=== PATIENT | female | born 1990 | race Caucasian/White ===

== ENCOUNTER 2017-05-31 19:00 | Inpatient (IN) | payer OTHER ==
[2017-05-31] MEDS ORDERED: XYLOCAINE 2% INFILTRATI ONE ×2 (19:51→21:04)
[2017-05-31] MEDS ORDERED: MINERAL OIL PO PRN ×2 (19:51→21:04)
[2017-05-31] MEDS ORDERED: ePHEDrine SULFATE IV PRN ×2 (19:51→21:04)
[2017-05-31] MEDS ORDERED: BRETHINE IVP PRN ×2 (19:51→21:04)
[2017-05-31] MEDS ORDERED: BRETHINE SUB-Q PRN ×2 (19:51→21:04)
[2017-05-31] MEDS ORDERED: PITOCin/NS 30 UNIT/500ML 30 UNITS/500 ML BAG IV SCH ×2 (20:00→22:00)
[2017-05-31] MEDS: LACTATED RINGERS 1,000 ML IV SCH ×3 (20:00→22:57)
[2017-05-31] MEDS ORDERED: PITOCin/NS 20 UNIT/1000ML DRIP 20 UNITS/1,000 ML BAG IV SCH ×2 (20:00→22:00)
[2017-05-31 20:24] LABS: Hematocrit 37.6 % (30.3-42.9); Hemoglobin 12.6 gm/dl (10.1-14.3); Mean Corpuscular HGB Conc 34 % (30-34); Mean Corpuscular Hemoglobin 29 pg (28-32); Mean Corpuscular Volume 85 fl (79-97); Platelet Count 246 K/mm3 (140-440); Red Cell Distribution Width 17.2 % (13.2-15.2); White Blood Count 12.3 K/mm3 (4.5-11.0)
[2017-05-31 20:48] LABS: HIV-1 Antigen p24 Non React (Non React); HIVR-1/2 Ab Non React (Non React)
--- NOTE | 2017-05-31 21:00 | History and Physical Report ---
History of Present Illness Date of examination: 05/31/17 Date of admission: 05/31/17 20:26 Chief complaint: Painful contractions History of present illness: 26-year-old at 38+4 weeks presents in active labor, she had care in [facility] and no care in the [place]. She dropped into the [facility] clinic for 1 visit and was not seen since. She had no labs or ultrasounds obtained ; it appears patient declined care. She claims her care has been unremarkable. Past History Past Medical History: no pertinent history Past Surgical History: no surgical history, other (rhinoplasty) [employer] History: denies: chlamydia, gonorrhea, hepatitis B, hepatitis C, herpes, HIV , syphilis Social history: full code. denies: smoking, alcohol abuse, prescription drug abuse, IV drug use - Obstetrical History Expected Date of Delivery: 06/10/17 Actual Gestation: 38 Week(s) 4 Day(s) : 1 Para: 0 Medications and Allergies Allergies Allergy/AdvReac Type Severity Reaction Status Date / Time No Known Allergies Allergy Unverified 05/31/17 19:45 Active Meds: Active Medications Ephedrine Sulfate (Ephedrine Sulfate) 10 mg IV Q2M PRN PRN Reason: Hypotension Lactated Ringer's (Lactated Ringers) 1,000 mls @ 125 mls/hr IV DIRECT ADONIS Last Admin: 05/31/17 20:00 Dose: 125 mls/hr Oxytocin/Sodium Chloride (Pitocin/Ns 20 Unit/1000ml Drip) 20 units in 1,000 mls @ 125 mls/hr IV DIRECT ADONIS Oxytocin/Sodium Chloride (Pitocin/Ns 30 Unit/500ml) 30 units in 500 mls @ 1 mls /hr IV TITR ADONIS; 1 MILLIUNITS/MIN PRN Reason: Protocol Mineral Oil (Mineral Oil) 30 ml PO QHS PRN PRN Reason: Constipation Terbutaline Sulfate (Brethine) 0.25 mg SUB-Q ONCE PRN PRN Reason: Hyperstimulation/Hypertonicity Terbutaline Sulfate (Brethine) 0.25 mg IVP ONCE PRN PRN Reason: Hyperstimulation/Hypertonicity Review of Systems Constitutional: no fever, no chills, no fatigue Cardiovascular: no chest pain, no syncope, no lightheadedness, no shortness of breath, no dyspnea on exertion, no high blood pressure Respiratory: no cough, no cough with sputum, no shortness of breath, no dyspnea on exertion Gastrointestinal: no abdominal pain, no nausea, no vomiting Genitourinary: contractions, no vaginal bleeding, no vaginal discharge, no leakage of fluid - Vital Signs Vital signs: Vital Signs Temp Resp 99.0 F 18 05/31/17 19:53 05/31/17 19:53 Temp Pulse Resp BP Pulse Ox 99.0 F 18 05/31/17 19:53 05/31/17 19:53 - Physical Exam Cardiovascular: Regular rate, Normal S1, Normal S2 Lungs: Positive: Clear to auscultation, Normal air movement Abdomen: Positive: normal appearance, soft, normal bowel sounds. Negative: distention, tenderness, guarding Genitourinary (Female): Positive: normal external genitalia Vulva: both: normal Uterus: Positive: enlarged (EFW ~ 3200) Adnexa: both: normal Extremities: Positive: normal - Obstetrical FHR: category 1 Cervical Dilatation: 8 Results Result Diagrams: 05/31/17 20:05 Abnormal lab results 05/31/17 Range/Units 20:05 WBC 12.3 H (4.5-11.0) K/mm3 RDW 17.2 H (13.2-15.2) % All other labs normal. Assessment and Plan A: 26-year-old at 38+4 weeks in active labor -Cat 1 tracing -No PNC in [place] P: -Admit -Routine labs -Epidural when necessary -Expectant management - Patient Problems (1) 38 weeks gestation of Current Visit: Yes Status: Acute (2) Active labor at term Current Visit: Yes Status: Acute (3) No care in current Current Visit: Yes Status: Acute
[2017-05-31 21:04] LABS: Urine Drugs of Abuse Note Disclamer
[2017-05-31] MEDS ORDERED: ZOFRAN IV PRN (21:04)
[2017-05-31] MEDS ORDERED: SUBLIMAZE IV PRN (21:04)
[2017-05-31] MEDS ORDERED: POLYCILLIN/NS 2 GM/100 ML 2 GM/100 ML BAG IV ONE (21:07)
[2017-05-31 21:12] LABS: Bacteria,Urine 1+ /HPF (Negative); Bilirubin,Urine NEG (Negative); Blood,Urine MOD (Negative); Ketones,Urine NEG (Negative); Leukocyte Esterase,Urine LG (Negative); Nitrite,Urine NEG (Negative); Protein,Urine <15 mg/dL mg/dL (Negative); Urobilinogen,Urine < 2.0 mg/dL (<2.0)
[2017-05-31] MEDS ORDERED: LACTATED RINGERS 1,000 ML IV SCH (22:00)
[2017-05-31] MEDS ORDERED: NARCAN 2 MG/2 ML IV PRN (22:06)
--- NOTE | 2017-05-31 22:06 | Anesthesia Consultation ---
Anesthesia Consult and Med Hx Date of service: 05/31/17 - Airway Anesthetic Teeth Evaluation: Good ROM Head & Neck: Adequate Mental/Hyoid Distance: Adequate Mallampati Class: Class II Intubation Access Assessment: Probably Good - Pulmonary Exam CTA: Yes - Cardiac Exam Cardiac Exam: RRR - Pre-Operative Health Status ASA Pre-Surgery Classification: ASA2 Proposed Anesthetic Plan: Epidural, Spinal - Pulmonary Hx Asthma: No COPD: No Hx Pneumonia: No - Cardiovascular System Hx Hypertension: No - Central Nervous System Hx Seizures: No Hx Psychiatric Problems: No - Endocrine Hx Renal Disease: No Hx End Stage Renal Disease: No Hx Hypothyroidism: No Hx Hyperthyroidism: No - Hematic Hx Anemia: No Hx Sickle Cell Disease: No - Other Systems Hx Alcohol Use: No Hx Obesity: Yes - Additional Comments Anesthesia Medical History Comments: IUP
[2017-05-31] MEDS ORDERED: fentaNYL-BUPIV 2 MCG/ML-0.125% 200 MCG/100 ML BAG EPIDURAL SCH (23:00)
[2017-05-31] MEDS: PITOCin/NS 30 UNIT/500ML 30 UNITS/500 ML BAG IV SCH (23:11)
[2017-06-01] MEDS: PITOCin/NS 30 UNIT/500ML 30 UNITS/500 ML BAG IV SCH (00:12)
[2017-06-01] MEDS ORDERED: POLYCILLIN/NS 1 GM/50 ML 1 GM/50 ML BAG IV SCH (01:00)
--- NOTE | 2017-06-01 02:28 | Progress Note ---
Assessment and Plan A: 26-year-old at 38+4 weeks in active labor -Cat 1 tracing -No PNC in [place] P: -Continue present care -Anticipate normal vaginal delivery - Patient Problems (1) 38 weeks gestation of Current Visit: Yes Status: Acute (2) Active labor at term Current Visit: Yes Status: Acute (3) No care in current Current Visit: Yes Status: Acute Subjective - Subjective Date of service: 06/01/17 Interval history: Patient is 9.5/100/-1 station. AROMed w/ clear fluid Patient reports: new complaints, contractions, no loss of fluid, no vaginal bleeding Objective - Vital Signs Vital Signs: Vital Signs - 12hr 05/31/17 05/31/17 05/31/17 19:53 21:13 21:16 Temperature 99.0 F 99.1 F Pulse Rate 96 H Respiratory 18 22 Rate Blood Pressure 141/74 O2 Sat by Pulse 95 Oximetry 05/31/17 05/31/17 05/31/17 21:21 21:26 21:31 Temperature Pulse Rate 98 H 103 H 102 H Respiratory Rate Blood Pressure O2 Sat by Pulse 96 96 96 Oximetry 05/31/17 05/31/17 05/31/17 21:36 21:37 21:41 Temperature Pulse Rate 96 H 91 H 99 H Respiratory Rate Blood Pressure O2 Sat by Pulse 95 94 96 Oximetry 05/31/17 05/31/17 05/31/17 21:43 21:53 21:56 Temperature Pulse Rate 114 H 106 H 99 H Respiratory Rate Blood Pressure 124/60 O2 Sat by Pulse 94 100 Oximetry 05/31/17 05/31/17 05/31/17 21:57 21:58 21:59 Temperature Pulse Rate 93 H 99 H 97 H Respiratory Rate Blood Pressure 121/66 122/64 O2 Sat by Pulse 98 Oximetry 05/31/17 05/31/17 05/31/17 22:01 22:03 22:04 Temperature Pulse Rate 101 H 114 H 101 H Respiratory Rate Blood Pressure 129/69 137/69 O2 Sat by Pulse 96 Oximetry 05/31/17 05/31/17 05/31/17 22:05 22:07 22:09 Temperature Pulse Rate 97 H 113 H 117 H Respiratory Rate Blood Pressure 141/75 152/89 O2 Sat by Pulse 98 Oximetry 05/31/17 05/31/17 05/31/17 22:10 22:11 22:13 Temperature Pulse Rate 116 H 103 H 114 H Respiratory Rate Blood Pressure 135/59 127/59 119/59 O2 Sat by Pulse Oximetry 05/31/17 05/31/17 05/31/17 22:14 22:16 22:19 Temperature Pulse Rate 105 H 107 H 108 H Respiratory Rate Blood Pressure 149/69 O2 Sat by Pulse 98 98 Oximetry 05/31/17 05/31/17 05/31/17 22:20 22:22 22:23 Temperature Pulse Rate 107 H 100 H 104 H Respiratory Rate Blood Pressure 155/122 139/122 130/109 O2 Sat by Pulse Oximetry 05/31/17 05/31/17 05/31/17 22:24 22:25 22:27 Temperature Pulse Rate 112 H 111 H Respiratory Rate Blood Pressure 139/111 O2 Sat by Pulse 99 91 Oximetry 05/31/17 05/31/17 05/31/17 22:28 22:29 22:31 Temperature Pulse Rate 114 H 115 H 103 H Respiratory Rate Blood Pressure 110/54 98/56 112/55 O2 Sat by Pulse 99 Oximetry 05/31/17 05/31/17 05/31/17 22:33 22:34 22:35 Temperature Pulse Rate 111 H 103 H 89 Respiratory Rate Blood Pressure 107/57 108/53 O2 Sat by Pulse 99 Oximetry 05/31/17 05/31/17 05/31/17 22:37 22:39 22:41 Temperature Pulse Rate 86 94 H 100 H Respiratory Rate Blood Pressure 108/54 104/60 111/58 O2 Sat by Pulse 99 Oximetry 05/31/17 05/31/17 05/31/17 22:43 22:44 22:45 Temperature Pulse Rate 107 H 94 H 97 H Respiratory Rate Blood Pressure 113/59 105/55 O2 Sat by Pulse 99 Oximetry 05/31/17 05/31/17 05/31/17 22:47 22:49 22:51 Temperature Pulse Rate 102 H 107 H 100 H Respiratory Rate Blood Pressure 109/58 109/58 96/56 O2 Sat by Pulse 96 Oximetry 05/31/17 05/31/17 05/31/17 22:52 22:53 22:54 Temperature Pulse Rate 106 H 107 H Respiratory Rate Blood Pressure 97/55 O2 Sat by Pulse 89 98 Oximetry 05/31/17 05/31/17 05/31/17 22:55 22:57 22:59 Temperature Pulse Rate 94 H 102 H 101 H Respiratory Rate Blood Pressure 105/57 107/56 101/58 O2 Sat by Pulse 97 Oximetry 05/31/17 05/31/17 05/31/17 23:01 23:03 23:04 Temperature Pulse Rate 97 H 106 H 98 H Respiratory Rate Blood Pressure 105/55 103/54 O2 Sat by Pulse 97 Oximetry 05/31/17 05/31/17 05/31/17 23:05 23:07 23:09 Temperature Pulse Rate 102 H 102 H 109 H Respiratory Rate Blood Pressure 104/53 98/53 104/55 O2 Sat by Pulse 98 Oximetry 05/31/17 05/31/17 05/31/17 23:11 23:13 23:14 Temperature Pulse Rate 109 H 107 H 101 H Respiratory Rate Blood Pressure 101/51 101/51 O2 Sat by Pulse 97 Oximetry 05/31/17 05/31/17 05/31/17 23:15 23:17 23:19 Temperature Pulse Rate 106 H 105 H 109 H Respiratory Rate Blood Pressure 93/52 96/53 95/46 O2 Sat by Pulse 98 Oximetry 05/31/17 05/31/17 05/31/17 23:24 23:26 23:28 Temperature Pulse Rate 116 H 102 H 111 H Respiratory Rate Blood Pressure 81/6 112/56 O2 Sat by Pulse 98 Oximetry 05/31/17 05/31/17 05/31/17 23:29 23:34 23:39 Temperature Pulse Rate 99 H 121 H 100 H Respiratory Rate Blood Pressure 89/50 O2 Sat by Pulse 98 98 98 Oximetry 05/31/17 05/31/17 05/31/17 23:41 23:44 23:45 Temperature Pulse Rate 121 H 108 H 110 H Respiratory Rate Blood Pressure 127/61 109/50 O2 Sat by Pulse 98 Oximetry 05/31/17 05/31/17 05/31/17 23:49 23:54 23:55 Temperature Pulse Rate 115 H 97 H 94 H Respiratory Rate Blood Pressure 103/53 108/56 O2 Sat by Pulse 97 98 Oximetry 05/31/17 06/01/17 06/01/17 23:59 00:04 00:09 Temperature Pulse Rate 117 H 130 H 107 H Respiratory Rate Blood Pressure O2 Sat by Pulse 98 98 97 Oximetry 1206/01/17 06/01/17 00:10 00:14 00:19 Temperature Pulse Rate 106 H 108 H 120 H Respiratory Rate Blood Pressure 107/58 O2 Sat by Pulse 98 98 Oximetry 06/01/17 06/01/17 06/01/17 00:20 00:24 00:25 Temperature 99.2 F Pulse Rate 122 H 126 H Respiratory Rate Blood Pressure 113/60 O2 Sat by Pulse 97 Oximetry 06/01/17 06/01/17 06/01/17 00:29 00:34 00:39 Temperature Pulse Rate 113 H 111 H 116 H Respiratory Rate Blood Pressure O2 Sat by Pulse 97 97 97 Oximetry 06/01/17 06/01/17 06/01/17 00:41 00:44 00:49 Temperature Pulse Rate 97 H 88 86 Respiratory Rate Blood Pressure 119/60 O2 Sat by Pulse 94 93 94 Oximetry 06/01/17 06/01/17 06/01/17 00:54 00:55 00:58 Temperature Pulse Rate 107 H 94 H 102 H Respiratory Rate Blood Pressure 122/65 O2 Sat by Pulse 94 94 Oximetry 06/01/17 06/01/17 06/01/17 00:59 01:04 01:05 Temperature Pulse Rate 116 H 108 H 109 H Respiratory Rate Blood Pressure O2 Sat by Pulse 95 95 94 Oximetry 06/01/17 06/01/17 06/01/17 01:09 01:10 01:11 Temperature Pulse Rate 109 H 110 H 105 H Respiratory Rate Blood Pressure 120/65 O2 Sat by Pulse 94 94 Oximetry 06/01/17 06/01/17 06/01/17 01:14 01:18 01:19 Temperature Pulse Rate 103 H 90 94 H Respiratory Rate Blood Pressure O2 Sat by Pulse 95 94 95 Oximetry 06/01/17 06/01/17 06/01/17 01:24 01:26 01:29 Temperature Pulse Rate 101 H 110 H 101 H Respiratory Rate Blood Pressure 128/83 O2 Sat by Pulse 95 96 Oximetry 06/01/17 06/01/17 06/01/17 01:30 01:34 01:39 Temperature Pulse Rate 105 H 105 H 97 H Respiratory Rate Blood Pressure O2 Sat by Pulse 94 96 94 Oximetry 06/01/17 06/01/17 06/01/17 01:41 01:44 01:49 Temperature Pulse Rate 90 80 90 Respiratory Rate Blood Pressure 119/63 O2 Sat by Pulse 93 93 Oximetry 06/01/17 06/01/17 06/01/17 01:54 01:56 01:59 Temperature Pulse Rate 84 109 H 121 H Respiratory Rate Blood Pressure 121/73 O2 Sat by Pulse 93 94 97 Oximetry 06/01/17 06/01/17 06/01/17 02:04 02:09 02:11 Temperature Pulse Rate 118 H 96 H 95 H Respiratory Rate Blood Pressure 127/70 O2 Sat by Pulse 96 95 Oximetry 06/01/17 06/01/17 06/01/17 02:14 02:18 02:19 Temperature Pulse Rate 84 85 114 H Respiratory Rate Blood Pressure O2 Sat by Pulse 95 94 97 Oximetry 06/01/17 06/01/17 02:24 02:25 Temperature Pulse Rate 116 H 109 H Respiratory Rate Blood Pressure 131/79 O2 Sat by Pulse 96 Oximetry - Exam FHR: category 1 Cervical Dilatation: 9.5 station: -1 - Labs Labs: Abnormal Labs 05/31/17 20:05 WBC 12.3 H RDW 17.2 H Laboratory Results - last 24 hr 05/31/17 05/31/17 05/31/17 20:05 20:05 20:05 WBC 12.3 H RBC 4.40 Hgb 12.6 Hct 37.6 MCV 85 MCH 29 MCHC 34 RDW 17.2 H Plt Count 246 Sickle Cell Screen Negative Urine Color Urine Turbidity Urine pH Ur Specific [place] Urine Protein Urine Glucose (UA) Urine Ketones Urine Blood Urine Nitrite Urine Bilirubin Urine Urobilinogen Ur Leukocyte Esterase Urine WBC (Auto) Urine RBC (Auto) U Epithel Cells (Auto) Urine Bacteria (Auto) Urine Opiates Screen Urine Methadone Screen Ur Barbiturates Screen Ur Phencyclidine Scrn Ur Amphetamines Screen U Benzodiazepines Scrn Urine Cocaine Screen U Marijuana (THC) Screen Drugs of Abuse Note Hep Bs Antigen Hepatitis C Antibody HIV 1&2 Antibody Rapid HIV P24 Antigen Rubella IgG Antibody Blood Type B POSITIVE Antibody Screen Negative 05/31/17 05/31/17 05/31/17 20:05 20:05 20:05 WBC RBC Hgb Hct MCV MCH MCHC RDW Plt Count Sickle Cell Screen Urine Color Urine Turbidity Urine pH Ur Specific [place] Urine Protein Urine Glucose (UA) Urine Ketones Urine Blood Urine Nitrite Urine Bilirubin Urine Urobilinogen Ur Leukocyte Esterase Urine WBC (Auto) Urine RBC (Auto) U Epithel Cells (Auto) Urine Bacteria (Auto) Urine Opiates Screen Urine Methadone Screen Ur Barbiturates Screen Ur Phencyclidine Scrn Ur Amphetamines Screen U Benzodiazepines Scrn Urine Cocaine Screen U Marijuana (THC) Screen Drugs of Abuse Note Hep Bs Antigen Non-reactive Hepatitis C Antibody Non-reactive HIV 1&2 Antibody Rapid Non react HIV P24 Antigen Non react Rubella IgG Antibody Immune Blood Type Antibody Screen 05/31/17 05/31/17 20:55 20:55 WBC RBC Hgb Hct MCV MCH MCHC RDW Plt Count Sickle Cell Screen Urine Color Yellow Urine Turbidity Clear Urine pH 7.0 Ur Specific [place] 1.005 Urine Protein <15 mg/dl Urine Glucose (UA) Neg Urine Ketones Neg Urine Blood Mod Urine Nitrite Neg Urine Bilirubin Neg Urine Urobilinogen < 2.0 Ur Leukocyte Esterase Lg Urine WBC (Auto) 6.0 Urine RBC (Auto) 5.0 U Epithel Cells (Auto) 1.0 Urine Bacteria (Auto) 1+ Urine Opiates Screen Presumptive negative Urine Methadone Screen Presumptive negative Ur Barbiturates Screen Presumptive negative Ur Phencyclidine Scrn Presumptive negative Ur Amphetamines Screen Presumptive negative U Benzodiazepines Scrn Presumptive negative Urine Cocaine Screen Presumptive negative U Marijuana (THC) Screen Presumptive negative Drugs of Abuse Note Disclamer Hep Bs Antigen Hepatitis C Antibody HIV 1&2 Antibody Rapid HIV P24 Antigen Rubella IgG Antibody Blood Type Antibody Screen
[2017-06-01] MEDS ORDERED: XYLOCAINE 2% INFILTRATI ONE (03:32)
[2017-06-01] MEDS ORDERED: METHERGINE IM ONE ×2 (03:38→04:58)
--- NOTE | 2017-06-01 03:54 | Procedure Note ---
OB Delivery Note - Delivery Date of Delivery: 06/01/17 Surgeon: PAVEL TRAORE Estimated blood loss: 300cc - Vaginal Delivery presentation: vertex Delivery position: OA Intrapartum events: no care (no care in the ) Delivery induction: none Delivery monitor: external FHT, external uterine Route of delivery: Delivery placenta: spontaneous Delivery cord: 3 umbilical vessels Episiotomy: none Delivery laceration: 2nd degree, vaginal side wall Delivery repair: vicryl Anesthesia: local, epidural - Infant A at 1 minute: 9 at 5 minutes: 9 Infant Gender: Female (time of delivery is 3:31 AM, infant weight 7 lbs. 5 oz. or 3331 g)
[2017-06-01] MEDS ORDERED: TYLENOL PO PRN (03:57)
[2017-06-01] MEDS ORDERED: ZOFRAN IV PRN (03:57)
[2017-06-01] MEDS ORDERED: NORCO 5/325 PO PRN (03:57)
[2017-06-01] MEDS ORDERED: METHERGINE IM PRN (03:57)
[2017-06-01] MEDS ORDERED: MILK OF MAGNESIA PO PRN (03:57)
[2017-06-01] MEDS ORDERED: PHENERGAN PR PRN (03:57)
[2017-06-01] MEDS ORDERED: PHENERGAN PO PRN (03:57)
[2017-06-01] MEDS ORDERED: TUCKS PAD TP PRN (03:57)
[2017-06-01] MEDS ORDERED: LANSINOH TP PRN ×2 (03:57)
[2017-06-01] MEDS ORDERED: DULCOLAX PR PRN (03:57)
[2017-06-01] MEDS ORDERED: BENADRYL PO PRN (03:57)
[2017-06-01] MEDS ORDERED: SODIUM CHLORIDE FLUSH SYRINGE 10 ML IV NR (04:00)
[2017-06-01] MEDS ORDERED: SENOKOT S PO SCH (06:00)
[2017-06-01] MEDS: MOTRIN PO SCH (07:22)
[2017-06-01] MEDS ORDERED: FEOSOL PO SCH (10:00)
[2017-06-01] MEDS ORDERED: COLACE PO SCH (10:00)
[2017-06-01] MEDS ORDERED: PRENATAL VITAMIN PO SCH (10:00)
[2017-06-01 16:07] LABS: Hematocrit 32.2 % (30.3-42.9); Hemoglobin 10.6 gm/dl (10.1-14.3)
[2017-06-02] MEDS: MOTRIN PO SCH ×2 (00:17→05:23)
[2017-06-02] MEDS ORDERED: BOOSTRIX IM ONE (06:05)
[2017-06-02] MEDS ORDERED: M-M-R II VACCINE SUB-Q ONE (06:05)
--- NOTE | 2017-06-02 08:02 | Progress Note ---
Assessment and Plan PPD#1 s/p -Doing well P: -Continue routine care -Anticipate discharge in 24-48 hours - Patient Problems (1) (normal spontaneous vaginal delivery) Current Visit: Yes Status: Acute (2) 38 weeks gestation of Current Visit: Yes Status: Acute (3) Active labor at term Current Visit: Yes Status: Acute (4) No care in current Current Visit: Yes Status: Acute Subjective - Subjective Date of service: 06/02/17 Principal diagnosis: PPD#1 Interval history: Patient seen and examined, stable doing well. No shortness of breath or chest pain no fever or chills. Adequate bowel bladder function ambulating without difficulty Patient reports: appetite normal, voiding normally, pain well controlled, flatus , ambulating normally, no dizzy ambulation, no nauseated : doing well Objective - Vital Signs Latest vital signs: Vital Signs Temp Pulse Resp BP 06/01/17 23:20 98.5 F 75 20 111/55 06/01/17 09:17 98.4 F 60 18 102/48 Intake and Output 06/01/17 06/02/17 06/02/17 23:59 07:59 15:59 Intake Total 480 540 Output Total 800 Balance -320 540 Intake: Oral 480 Intake, Free Water 540 Output: Urine 800 Void 800 Other: Total, Intake Amount 480 Total, Output Amount 800 # Voids Void 2 1 - Exam Abdomen: Present: normal appearance, soft. Absent: distention, tenderness, guarding, rigidity Uterus: Present: firm, fundal height below umbilicus Extremities: Present: normal
--- NOTE | 2017-06-02 08:04 | Discharge Summary ---
Providers - Providers Date of Admission: 05/31/17 20:26 Date of discharge: 06/03/17 Attending physician: PAVEL TRAORE Primary care physician: PAVEL TRAORE Hospitalization Reason for admission: active labor, IUP at term Delivery: Episiotomy: none Laceration: 2nd degree Incision: dry, intact Other procedures: none complications: none Discharge diagnosis: IUP at term delivered baby: female Hospital course: Uncomplicated course Condition at discharge: Good Disposition: DC-01 TO HOME OR SELFCARE - Discharge Diagnoses (1) (normal spontaneous vaginal delivery) Status: Acute (2) 38 weeks gestation of Status: Acute (3) Active labor at term Status: Acute (4) No care in current Status: Acute Plan - Discharge Medications Prescriptions: HYDROcodone/APAP 5-325 [[place] 5/325] 1 each PO Q6HR PRN #10 tablet PRN Reason: Pain Ibuprofen [Motrin 600 MG tab] 600 mg PO Q8H PRN #30 tablet PRN Reason: Pain Multivitamin with Iron [Multivitamins with Iron] 1 each PO DAILY #30 tablet - Provider Discharge Summary Activity: no sex for 6 weeks, no heavy lifting 4 weeks, no strenuous exercise Diet: routine Additional instructions: [] Smoking cessation referral if applicable(refer to patient education folder for contact #) [] Refer to [facility] Booklet Call your doctor immediately for: * Fever > 100.5 * Heavy vaginal bleeding ( >1 pad per hour) * Severe persistent headache * Shortness of breath * Reddened, hot, painful area to leg or breast * Drainage or odor from incision. * Keep incision clean and dry at all times and follow doctor's instructions regarding bathing/showering - Follow up plan Follow up: PAVEL TRAORE MD [Primary Care Provider] - 6 Weeks
[2017-06-02 17:26] VITALS: BP 110/62
== END 2017-06-02 18:50 | disposition home or self-care (01) | DRG 775 ==
LOC: TRG 19:00 → LD 20:26 → OB 06-01 07:04
PROVIDERS: ADMIT Obstetrics & Gynecology Gynecology; ATTEND Obstetrics & Gynecology Gynecology
PROC: 10E0XZZ Delivery of Products of Conception, External Approach (ICD-10-PCS; principal; 2017-06-01)
PROC: 0KQM0ZZ Repair Perineum Muscle, Open Approach (ICD-10-PCS; 2017-06-01)
PROC: 3E0R3BZ Introduction of Anesthetic Agent into Spinal Canal, Percutaneous Approach (ICD-10-PCS; 2017-06-01)
PROC: 00HU33Z Insertion of Infusion Device into Spinal Canal, Percutaneous Approach (ICD-10-PCS; 2017-06-01)
PROC: 3E0234Z Introduction of Serum, Toxoid and Vaccine into Muscle, Percutaneous Approach (ICD-10-PCS; 2017-06-01)
DX: O71.4 Obstetric high vaginal laceration alone (principal); Z37.0 Single live birth; Z3A.38 38 weeks gestation of pregnancy; Z23 Encounter for immunization
CPT/HCPCS: 36415; 80307; 81001; 85014; 85018; 85027; 85660; 86592; 86706; 86762; 86803; 86850; 86900; 86901; 87806; 90707; J0290; J2210; J2405; J2590; J7120